=== PATIENT | male | born 1940 | race Caucasian/White ===

== ENCOUNTER 2018-08-24 17:38 | Inpatient (IN) | payer BC, OTHER ==
--- NOTE | 2018-08-24 17:44 | PDOC ---
Rapid Medical Evaluation Chief Complaint: Lightheaded Medical Evaluation: Allergies Allergy/AdvReac Type Severity Reaction Status Date / Time No Known Allergies Allergy Verified 01/15/16 18:12 08/24/18 17:40 I have performed a brief in-person evaluation of this patient. The patient presents with a chief complaint of: states passed piece of kidney stones, freq problems with same. +dizziness and equalibrium changes.;felt chills and feverish Pertinent physical exam findings: Weak, AOx3, I have ordered the following: UA/ CMP/ CMP The patient will proceed to the ED for further evaluation. 08/24/18 17:42 Discharge Disposition - Diagnosis Dizziness - Referrals - Patient Instructions - Post Discharge Activity
[2018-08-24 17:54] VITALS: BMI 23.6
--- NOTE | 2018-08-24 18:02 | PDOC ---
History of Present Illness - General Chief Complaint: Lightheaded Stated Complaint: FALL, LOSS OF EQULIBRIUM Time Seen by Provider: 08/24/18 18:01 - History of Present Illness Initial Comments: 08/24/18 19:10 The patient is a 77 year old male with a history of HTN, HLD, Kidney Stones, [place] who presents for evaluation of frequent falls. The patient reports that he passed a kidney stone 2 days ago and over the past 1 day he has been experiencing frequent falls. He states that he feels "unsteady on his feet." He states that he does not feel lightheaded or dizziness but states that he feels his balance is off. He notes that he fell today and was unable to get up due to feeling unsteady prompting his presentation to the ED for further evaluation. He otherwise denies headache, fevers, chills, SOB, chest pain, nausea, vomiting, abdominal pain, or changes with urination or bowel movements. Past History - Past Medical History Allergies/Adverse Reactions: Allergies Allergy/AdvReac Type Severity Reaction Status Date / Time No Known Allergies Allergy Verified 08/24/18 17:43 Home Medications: Ambulatory Orders Aspirin [ASA -] 81 mg PO DAILY 01/15/16 Atorvastatin Ca [Lipitor] 40 mg PO DAILY 01/15/16 Clopidogrel Bisulfate [Plavix -] 75 mg PO DAILY 01/15/16 Metoprolol Succinate [Toprol Xl -] 25 mg PO DAILY 01/15/16 Pantoprazole Sodium [Protonix -] 40 mg PO DAILY 01/15/16 Ramipril 2.5 mg PO DAILY 01/15/16 Anemia: No Asthma: No Cancer: No Cardiac Disorders: Yes ([place] 2005 -stent) CVA: No COPD: No CHF: No Dementia: No Diabetes: No GI Disorders: No Disorders: Yes (kidney stones) HTN: Yes Hypercholesterolemia: Yes Liver Disease: No Seizures: No Thyroid Disease: No - Surgical History Abdominal Surgery: No Appendectomy: No Cardiac Surgery: Yes (stent placement) Cholecystectomy: No Lung Surgery: No Neurologic Surgery: No Orthopedic Surgery: No - Suicide/Smoking/Psychosocial Hx Smoking History: Never smoked Have you smoked in the past 12 months: No If you are a former smoker, when did you quit?: 10 yrs ago Hx Alcohol Use: No Drug/Substance Use Hx: No Substance Use Type: None Hx Substance Use Treatment: No Review of Systems - Review of Systems Comments:: 08/24/18 19:15 Constitutional: No fevers, chills, fatigue, malaise HEENT: No Rhinorrhea, nasal congestion, visual changes Cardiovascular: No chest pain, syncope, palpitations, lightheadedness Respiratory: No Cough, SOB, Hemoptysis, Gastrointestinal: No Abdominal pain, Nausea, Vomiting, Constipation, Diarrhea, Melena Genitourinary: No Dysuria, Frequency, Urgency, Hesitancy, Hematuria, Flank pain Musculoskeletal: No Myalgia, arthralgia Skin: No rashes, itching, bruising, pallor Neurologic: Gait instability. No Headache, Dizziness, Numbness, Weakness, or Tingling Psychiatric: No Hallucinations. No SI or HI *Physical Exam - Vital Signs Last Vital Signs Temp Pulse Resp BP Pulse Ox 98.7 F 75 19 134/64 96 08/24/18 17:41 08/24/18 17:41 08/24/18 17:41 08/24/18 17:41 08/24/18 17:41 - Physical Exam Comments: 08/24/18 19:16 General Appearance: Nourished. No Apparent Distress HEENT: EOMI, LYNDA. Normal TMs bilaterally. No Pharyngeal Erythema, Tonsillar Exudate, Tonsillar Erythema Neck: No Cervical Lymphadenopathy Respiratory/Chest: Lungs Clear, Normal Breath Sounds. No Crackles, Rales, Rhonchi, Wheezing Cardiovascular: Regular Rhythm, Regular Rate. No Murmur, Gallops, Rubs Gastrointestinal/Abdominal: Normal Bowel Sounds, Soft. No Guarding, Rebound, Tenderness Musculoskeletal: No CVA Tenderness Extremity: Normal Capillary Refill Integumentary: Normal Color, Dry, Warm Neurologic: coater operator II-XII NML intact, Fully Oriented, Alert, Normal Mood/Affect, Normal Response, Motor Strength 5/5. Normal Finger to Nose and Heel to Huff. Unsteady gait noted on exam. Negative roomburgs. ED Treatment Course - LABORATORY CBC & Chemistry Diagram: 08/24/18 19:24 08/24/18 19:24 Medical Decision Making - Medical Decision Making 08/24/18 19:17 The patient is a 77 year old male with a history of HTN, HLD, Kidney Stones, [place] who presents for evaluation of frequent falls. Differential includes but is not limited to: Syncope, CVA, TIA, Infectious, Metabolic Derangement. Given the patient's history and physical exam, we will obtain a cbc, cmp, troponin, ua , urine cultures, head CT, chest plain film, cervical CT to evaluate further. We will continue to monitor and reassess while here in the ED. 08/24/18 23:40 CBC, cmp, troponin, are unremarkable. Head CT and Cervical spine CT did not demonstrate any acute pathology as read by our fiberglass bonding machine tender radiologist. Chest plain film was unremarkable. Given the patient's history and physical exam, we are concerned for a neurological process as the source of the patient's ataxia. He will require admission for further monitoring and management. We discussed the case with the admitting team who accepted the patient for admission. *DC/Admit/Observation/Transfer Diagnosis at time of Disposition: Dizziness, Ataxic gait - Discharge Dispostion Condition at time of disposition: Stable Decision to Admit order: Yes - Referrals - Patient Instructions - Post Discharge Activity
--- NOTE | 2018-08-24 19:12 | PDOC ---
Documentation entered by Abisai Todd SCRIBE, acting as scribe for Lisseth Nascimento DO. Lisseth Nascimento DO: This documentation has been prepared by the Perez kyle Joel, SCRIBE, under my direction and personally reviewed by me in its entirety. I confirm that the documentation accurately reflects all work, treatment, procedures, and medical decision making performed by me. Attending Attestation - Resident Resident Name: John River - ED Attending Attestation I have performed the following: I have examined & evaluated the patient, The case was reviewed & discussed with the resident, I agree w/resident's findings & plan, Exceptions are as noted - HPI HPI: 08/24/18 19:13 The patient is a 77 year old male, with a significant PMH of [place] (s/p stent, 2005 ), CAD (on Plavix), HTN, hyperlipidemia, and kidney stones who presents to the emergency department for evaluation of disequilibrium and 2 falls within the past 2 days. The patient states he fell last night while trying to get into bed and into the tub this morning while urinating. He states he was unable to stand today after falling as he felt he lost his equilibrium. He denies hitting his head or LOC. He also endorses chills. The patient also reports 1 episode of hematuria this past Tuesday with an associated jagged, sharp pain sensation. He states his episode of hematuria and dysuria is consistent with his prior kidney stone passings. The patient denies chest pain, shortness of breath, headache and dizziness. Denies fever, nausea, vomit, diarrhea and constipation. Denies urinary frequency, urgency. Allergies: NKA Past surgical history: Cardiac stent placement. Social history: Former smoker. No reported alcohol or drug use. PCP: Dr. Nelson ([facility]) - Physicial Exam PE: 08/24/18 19:13 GENERAL: Awake, alert, and fully oriented, in no acute distress HEAD: No signs of trauma EYES: PERRLA, EOMI, sclera anicteric, conjunctiva clear ENT: Auricles normal inspection, hearing grossly normal, nares patent, oropharynx clear without exudates. Moist mucosa NECK: Normal ROM, supple, no lymphadenopathy, JVD, or masses LUNGS: Breath sounds equal, clear to auscultation bilaterally. No wheezes, and no crackles HEART: Regular rate and rhythm, normal S1 and S2, no murmurs, rubs or gallops ABDOMEN: Soft, nontender, normoactive bowel sounds. No guarding, no rebound. No masses BACK: No CVA tenderness. No C-spine tenderness. No rib tenderness. EXTREMITIES: Normal range of motion, no edema. No clubbing or cyanosis. No cords, erythema, or tenderness NEUROLOGICAL: Cranial nerves II through XII grossly intact. Normal speech. SKIN: Warm, Dry, normal turgor, no rashes or lesions noted. - Medical Decision Making 08/24/18 19:03 I, Dr. Lisseth Nascimento, DO, attest that this document has been prepared under my direction and personally reviewed by me in its entirety. I further attest, that it accurately reflects all work, treatment, procedures and medical decision -making performed by me. 08/24/18 19:05 a/p: 77yo male with hx of htn, cad on asa/plavix with recently passed kidney stone on tuesday with freq falls and feeling off balance since -pt denies head injury of loc -pt denies cp/sob -denies ear pain or tinnitus, no rhinorrhea or sore throat -no abd pain -no dysuria -c/o chills, but no fevers -no hematuria today -will send labs, head ct, ekg, trop, cxr, ct c spine -will need obs for mri head -will monitor and reassess -had normal finger to nose and heel/cyr, but off balance when he stands 08/24/18 20:[address] without acute findings cxr clear labs [facility] for further eval of ataxic gait and freq falls and poss neuro eval pt now walks with a walker- which is new x 2 days 08/24/18 21:16 resident discussed the case with leydi who accepts pt to service
[2018-08-24 19:42] LABS: BASO % 1.1 % (0-2.0); HEMATOCRIT 43.1 % (35.4-49); HEMOGLOBIN 14.5 GM/dL (11.7-16.9); LYMPH % 7.2 % (8-40); MCH 28.6 pg (25.7-33.7); MCHC 33.8 g/dl (32.0-35.9); MEAN CELL VOLUME 84.7 fl (80-96); MEAN PLT VOLUME 8.8 fl (7.5-11.1); MONO % 4.6 % (3.8-10.2); NEUT % 87.1 % (42.8-82.8); PLATELET COUNT 124 K/MM3 (134-434); RBC 5.09 M/mm3 (4.00-5.60); RDW 14.2 % (11.9-15.9); WHITE BLOOD COUNT 7.4 K/mm3 (4.0-10.0)
[2018-08-24 19:52] LABS: INR 1.23 (0.83-1.09); PROTHROMBIN TIME (PATIENT) 14.5 SEC (9.7-13.0)
[2018-08-24 20:40] LABS: ALBUMIN 3.6 g/dl (3.4-5.0); BILIRUBIN,TOTAL 1.3 mg/dL (0.2-1); BLOOD UREA NITROGEN 19.1 mg/dL (7-18); CALCIUM 8.6 mg/dL (8.5-10.1); CREATININE 1.2 mg/dL (0.55-1.3); POTASSIUM 3.8 mmol/L (3.5-5.1); TOT PROT 6.5 g/dl (6.4-8.2)
--- NOTE | 2018-08-24 21:18 | PN ---
Teaching Attending Note Name of Resident: Brenda Marin ATTENDING PHYSICIAN STATEMENT I saw and evaluated the patient. I reviewed the resident's note and discussed the case with the resident. I agree with the resident's findings and plan as documented. SUBJECTIVE: Patient is a 77 year old man with a PMH of [place] (s/p stent, 2005), CAD(on Plavix) , HTN, Hyperlipidemia and Kidney stones who presents to the ER for evaluation of disequilibrium and 2 falls within the past 2 days. The patient states he fell last night while trying to get into bed and into the tub this morning while urinating. He states he was unable to stand today after falling as he felt he lost his equilibrium. He denies hitting his head or LOC. He also endorses chills. The patient also reports 1 episode of hematuria this past Tuesday with an associated jagged, sharp pain sensation. He states his episode of hematuria and dysuria is consistent with his prior kidney stone passings. The patient denies chest pain, shortness of breath, headache and dizziness. Denies fever, nausea, vomit, diarrhea and constipation. Denies urinary frequency , urgency. OBJECTIVE: Alert and not orthostatic Vital Signs Period Temp Pulse Resp BP Sys/Ramires Pulse Ox Last 24 Hr 98.7 F 75 19 134/64 96 HEENT: No Jaundice, eye redness or discharge, PERRLA, EOMI. Normocephalic, atraumatic. External ears are normal and hearing is grossly intact. No nasal discharge. Neck: Supple, nontender. No palpable adenopathy or thyromegaly. No JVD Chest: Good effort. Clear to auscultation and percussion. Heart: Regular. No S3, rub or murmur Abdomen: Not distended, soft, nontender and no HSM. No rebound or guarding. Normal bowel sounds. Ext: Peripheral pulses intact. No leg edema. Skin: Warm and dry. No petechiae, rash or ecchymosis. Neuro: Alert. Oriented x3. CN 2-12 grossly intact. Sensation grossly intact in all four extremities and DTR are symmetric. Gait cannot be tested for safety reasons. Psych: Appropriate mood and affect. Good insight. Home Medications Medication Instructions Recorded Aspirin [ASA -] 81 mg PO DAILY 01/15/16 Atorvastatin Ca [Lipitor] 40 mg PO DAILY 12/08/16 Clopidogrel Bisulfate [Plavix -] 75 mg PO DAILY 01/15/16 Metoprolol Succinate [Toprol Xl -] 25 mg PO DAILY 01/15/16 Pantoprazole Sodium [Protonix -] 40 mg PO DAILY 01/15/16 Ramipril 2.5 mg PO DAILY 01/15/16 Abnormal Lab Results 08/24/18 08/24/18 08/24/18 19:24 19:24 19:24 Plt Count 124 L Neutrophils % 87.1 H Lymphocytes % 7.2 L PT with INR 14.50 H INR 1.23 H Anion Gap 7 L BUN 19.1 H Total Bilirubin 1.3 H AST 40 H ASSESSMENT AND PLAN: 1. Frequent falls - Cause unclear. CXR and noncontrast head CT scan did not show any acute abnormality and no fracture noted on C-spine CT. Urinalysis is pending. Will get brain MRI to rule out CVA, ECHO, urine toxicology, monitor on telemetry, consult PT and Neurology. Implement fall precautions. 2. Hypertension - Restart suitable outpatient antihypertensive drugs when clinically appropriate. Revise regimen to ensure good BP control. Nonpharmacologic measures to control hypertension like weight loss, salt restriction and exercise discussed. 3. DVT prophylaxis - Lovenox 40 mg SQ q 24 hours. 4. Advance directives - Full code
[2018-08-25] MEDS ORDERED: ACETAMINOPHEN 325 MG TABLET (FP) PO PRN (02:20)
[2018-08-25 02:24] VITALS: TEMP 98.9
[2018-08-25] MEDS ORDERED: ACETAMINOPHEN 325 MG TABLET (FP) ONE (02:35)
--- NOTE | 2018-08-25 03:08 | HP ---
CHIEF COMPLAINT: weakness, ataxia PCP: HISTORY OF PRESENT ILLNESS: 77M with pmh of HLD, chronic kidney stones(calcium stones, 18 urologic procedures), [place](2005, stent x1) presents to [facility] with complaint of weakness and unstable gait x3d. 3d prior, passed a stone and subsequently developed chills, lower extremity weakness. Fell on 08/24/18 and could not get himself up, had to crawl. Prior to fall, denies ODELL/dizziness/F/C/CP/SOB/CP/palpitations. Normal PO intake. Denies sick contacts. H/o mechanical fall on ice years prior. No h/o syncopal episodes. Had echocardiogram and carotid doppler study ~1ys prior, does not recall results. Lives with at home. Ambulates w/o difficulty baseline. Acheives ALDs independently. ER course was notable for: (1) CT H neg (2) CT c-spine neg Recent Travel: PAST MEDICAL HISTORY: HLD, chronic kidney stones(calcium stones, 18 urologic procedures), [place](2005, stent x1) PAST SURGICAL HISTORY: Social History: Smoking: last tobacco was 13ys prior, near-daily MJ Alcohol: denies Drugs: MJ Family History: Allergies No Known Allergies Allergy (Verified 08/24/18 17:43) HOME MEDICATIONS: Home Medications Medication Instructions Recorded Aspirin [ASA -] 81 mg PO DAILY 01/15/16 Atorvastatin Ca [Lipitor] 40 mg PO DAILY 01/15/16 Clopidogrel Bisulfate [Plavix -] 75 mg PO DAILY 01/15/16 Metoprolol Succinate [Toprol Xl -] 25 mg PO DAILY 01/15/16 Pantoprazole Sodium [Protonix -] 40 mg PO DAILY 01/15/16 Ramipril 2.5 mg PO DAILY 01/15/16 REVIEW OF SYSTEMS CONSTITUTIONAL: Absent: fever, chills, diaphoresis, generalized weakness, malaise, loss of appetite, weight change HEENT: Absent: rhinorrhea, nasal congestion, throat pain, throat swelling, difficulty swallowing, mouth swelling, ear pain, eye pain, visual changes CARDIOVASCULAR: Absent: chest pain, syncope, palpitations, irregular heart rate, lightheadedness , peripheral edema RESPIRATORY: Absent: cough, shortness of breath, dyspnea with exertion, wheezing, stridor, hemoptysis GASTROINTESTINAL: Absent: abdominal pain, abdominal distension, nausea, vomiting, diarrhea, constipation, melena, hematochezia GENITOURINARY: Absent: dysuria, frequency, urgency, hesitancy, hematuria, flank pain, genital pain MUSCULOSKELETAL: Absent: myalgia, arthralgia, joint swelling, back pain, neck pain SKIN: Absent: rash, itching, pallor HEMATOLOGIC/IMMUNOLOGIC: Absent: easy bleeding, easy bruising, lymphadenopathy, frequent infections ENDOCRINE: Absent: unexplained weight gain, unexplained weight loss NEUROLOGIC: lower extremity weakness, unsteady gait Absent: headache, focal weakness or paresthesias, dizziness, seizure, mental status changes, bladder or bowel incontinence PHYSICAL EXAMINATION Vital Signs - 24 hr 08/24/18 08/25/18 17:41 02:15 Temperature 98.7 F 98.9 F Pulse Rate 75 Pulse Rate [ 73 Right Radial] Respiratory 19 16 Rate Blood Pressure 134/64 Blood Pressure 122/59 L [Right Arm] O2 Sat by Pulse 96 98 Oximetry (%) GENERAL: Awake, alert, and fully oriented, in no acute distress. HEAD: Normal with no signs of trauma. No temporal wasting EYES: extraocular movements intact, sclera anicteric, conjunctiva clear. EARS, NOSE, THROAT: Ears normal, nares patent, oropharynx clear without exudates. Moist mucous membranes. NECK: Normal range of motion, supple without lymphadenopathy, JVD, or masses. LUNGS: Breath sounds equal, clear to auscultation bilaterally. No wheezes, and no crackles. No accessory muscle use. HEART: Regular rate and rhythm, normal S1 and S2 without murmur, rub or gallop. ABDOMEN: Soft, nontender, not distended, no guarding, no rebound, no masses. MUSCULOSKELETAL: Normal range of motion at all joints. No bony deformities or tenderness. No CVA tenderness. UPPER EXTREMITIES: 2+ pulses, warm, well-perfused. No cyanosis. No clubbing. No peripheral edema. LOWER EXTREMITIES: 2+ pulses, warm, well-perfused. No calf tenderness. No peripheral edema. NEUROLOGICAL: Cranial nerves II-XII intact. Normal speech. Normal gait. NIHSS ~ 0 PSYCHIATRIC: Cooperative. Good eye contact. Appropriate mood and affect. SKIN: Warm, dry, normal turgor, no rashes or lesions noted, normal capillary refill. Laboratory Results - last 24 hr 08/24/18 08/24/18 08/24/18 19:24 19:24 19:24 WBC RBC Hgb Hct MCV MCH MCHC RDW Plt Count MPV Absolute Neuts (auto) Neutrophils % Lymphocytes % Monocytes % Eosinophils % Basophils % Nucleated RBC % PT with INR INR PTT (Actin FS) 32.3 Sodium 137 Potassium 3.8 Chloride 102 Carbon Dioxide 27 Anion Gap 7 L BUN 19.1 H Creatinine 1.2 Est GFR (CKD-EPI)AfAm 67.20 Est GFR (CKD-EPI)NonAf 57.98 Random Glucose 101 Calcium 8.6 Total Bilirubin 1.3 H AST 40 H ALT 48 Alkaline Phosphatase 66 Creatine Kinase 74 Troponin I < 0.02 Total Protein 6.5 Albumin 3.6 08/24/18 08/24/18 19:24 19:24 WBC 7.4 RBC 5.09 Hgb 14.5 Hct 43.1 MCV 84.7 MCH 28.6 MCHC 33.8 RDW 14.2 Plt Count 124 L MPV 8.8 Absolute Neuts (auto) 6.5 Neutrophils % 87.1 H Lymphocytes % 7.2 L Monocytes % 4.6 Eosinophils % 0.0 Basophils % 1.1 Nucleated RBC % 0 PT with INR 14.50 H INR 1.23 H PTT (Actin FS) Sodium Potassium Chloride Carbon Dioxide Anion Gap BUN Creatinine Est GFR (CKD-EPI)AfAm Est GFR (CKD-EPI)NonAf Random Glucose Calcium Total Bilirubin AST ALT Alkaline Phosphatase Creatine Kinase Troponin I Total Protein Albumin ASSESSMENT/PLAN: 77M with pmh of HLD, chronic kidney stones(calcium stones, 18 urologic procedures), [place](2005, stent x1) presenting w/ complaint of weakness and unsteady gait. # weakness -- resolving # unsteady gait -- resolving > BS 101 > CT H(08/24/18): neg > CT c-spine(08/24/18): neg - NIHSS ~0 - consider Neuro consult - fu MRI brain - fu urine tox - fu UA # h/o MS > EKG(08/24/18): NSR, infarct of indeterminate age - restart home meds in AM [facility], DO PGY-1 Medicine, PM-Float [id number] 08/25/18 Visit type - Emergency Visit Emergency Visit: Yes ED Registration Date: 08/24/18 Care time: The patient presented to the Emergency Department on the above date and was hospitalized for further evaluation of their emergent condition. - New Patient This patient is new to me today: Yes Date on this admission: 08/25/18 - Critical Care Critical Care patient: No ATTENDING PHYSICIAN STATEMENT I saw and evaluated the patient. I reviewed the resident's note and discussed the case with the resident. I agree with the resident's findings and plan as documented. SUBJECTIVE: OBJECTIVE: ASSESSMENT AND PLAN:
[2018-08-25 08:11] LABS: HEMATOCRIT 41.7 % (35.4-49); HEMOGLOBIN 14.2 GM/dL (11.7-16.9); MCH 28.9 pg (25.7-33.7); MCHC 34.1 g/dl (32.0-35.9); MEAN CELL VOLUME 84.8 fl (80-96); PLATELET COUNT 96 K/MM3 (134-434); RBC 4.92 M/mm3 (4.00-5.60); RDW 13.8 % (11.9-15.9); WHITE BLOOD COUNT 5.4 K/mm3 (4.0-10.0)
[2018-08-25 08:18] LABS: BLOOD UREA NITROGEN 21.7 mg/dL (7-18); CALCIUM 8.6 mg/dL (8.5-10.1); CREATININE 1.1 mg/dL (0.55-1.3); MAGNESIUM 2.1 mg/dL (1.8-2.4); PHOSPHOROUS 2.9 mg/dL (2.5-4.9); POTASSIUM 3.3 mmol/L (3.5-5.1)
[2018-08-25 08:23] VITALS: BP 125/71; PULSE 67
[2018-08-25] MEDS ORDERED: POTASSIUM CHLORIDE TABS 20 MEQ TABLET.ER (FP) PO ONE ×2 (08:44→09:12)
[2018-08-25] MEDS ORDERED: KCL 10 MEQ IVPB 10 MEQ/100 ML INFUS.BAG IVPB SCH (08:45)
[2018-08-25 09:05] LABS: BILIRUBIN,DIRECT 0.3 mg/dL (0.0-0.2)
[2018-08-25] MEDS ORDERED: KCL 10 MEQ IVPB 10 MEQ/100 ML INFUS.BAG IVPB ONE (09:37)
--- NOTE | 2018-08-25 10:22 | CON.NEURO ---
Consult Consult Specialty:: Pita Referred by:: ER Reason for Consultation:: weakness - History of Present Illness History of Present Illness: [id number] right-handed man with present medical history significant for HLD, chronic kidney stones(calcium stones, 18 urologic procedures), [place](2006, stent x1) Presents to the hospital with a chief complaint of difficulty with balance and equilibrium. I so the patient in the emergency room patient was very agitated did not want to be examined patient wants to go to the home. Patient claims that this happened because he passed the stone. - History Source History Provided By: Patient Limitations to Obtaining History: No Limitations - Alcohol/Substance Use Hx Alcohol Use: No - Smoking History Smoking history: Never smoked Have you smoked in the past 12 months: No If you are a former smoker, when did you quit?: 10 yrs ago Home Medications - Allergies Allergies/Adverse Reactions: Allergies Allergy/AdvReac Type Severity Reaction Status Date / Time No Known Allergies Allergy Verified 08/24/18 17:43 - Home Medications Home Medications: Ambulatory Orders Aspirin [ASA -] 81 mg PO DAILY 01/15/16 Atorvastatin Ca [Lipitor] 40 mg PO DAILY 01/15/16 Clopidogrel Bisulfate [Plavix -] 75 mg PO DAILY 01/15/16 Metoprolol Succinate [Toprol Xl -] 25 mg PO DAILY 01/15/16 Pantoprazole Sodium [Protonix -] 40 mg PO DAILY 01/15/16 Ramipril 2.5 mg PO DAILY 01/15/16 Family Disease History - Family Disease History Family History: Unable to Obtain Review of Systems - Review of Systems Neurological: reports: Incoordination, Numbness, Parasthesia Physical Exam-Neuro Vital Signs: Vital Signs Temperature 98.9 F 08/25/18 02:15 Pulse Rate 67 08/25/18 08:22 Respiratory Rate 20 08/25/18 08:22 Blood Pressure 125/71 08/25/18 08:22 O2 Sat by Pulse Oximetry (%) 97 08/25/18 08:22 Constitutional: Yes: Well Nourished Neck: Yes: WNL Cardiovascular: Yes: WNL Labs: CBC, BMP 08/25/18 06:52 08/25/18 06:52 INR, PTT INR 1.23 (0.83-1.09) H 08/24/18 19:24 - Neuro Exam Level Of Consciousness: Yes: Oriented to Person, Oriented to Place, Oriented to Time Eyes: Yes: PERRLA Speech: WNL Dominant Hand: Right Cranial Nerves II-XII Intact: Yes Gag: Present DTR's: 1+ Left Bicep, 1+ Right Bicep, 1+ Left Tricep, 1+ Right Tricep Response to light touch: Normal Response to pain prick: Normal Response to temperature: Normal Response to vibration: Normal Motor Strength: 4/5: Left Arm, Right Arm, Left Leg, Right Leg Imaging - Results Cat Scan: Image Reviewed Problem List - Problems (1) Ataxic gait Assessment/Plan: patient refused to stay in the hospital Patient needs an MRI of the brain with no contrast Patient needs a CAT scan of the lumbosacral spine with no contrast Fall precautions Lidoderm patches on the lower back Code(s): R26.0 - ATAXIC GAIT
--- NOTE | 2018-08-25 12:50 | EKG ---
Test Reason : Blood Pressure : / mmHG Vent. Rate : 070 BPM Atrial Rate : 070 BPM P-R Int : 142 ms QRS Dur : 096 ms QT Int : 372 ms P-R-T Axes : 009 -29 068 degrees QTc Int : 401 ms NORMAL SINUS RHYTHM POSSIBLE INFERIOR INFARCT , AGE UNDETERMINED NONSPECIFIC ST ABNORMALITY ABNORMAL ECG Confirmed by CLARIBEL BELTRÁN MD ([id number]) on 08/25/2018 12:50:16 PM Referred By: Confirmed By:CLARIBEL BELTRÁN MD
--- NOTE | 2018-08-25 19:02 | DS ---
Physical Exam: SUBJECTIVE: Patient seen and examined at bedside. pt states that he has been getting kidney stones for many years. 3 days ago he passed a kidney stone and this event was traumatic for the pt making him weak. this weakness caused the patient to fall. the pt is aggravated and wants to leave the hospital ama. OBJECTIVE: Vital Signs Period Temp Pulse Resp BP Sys/Ramires Pulse Ox Last 24 Hr 98.9 F 67-73 16-20 122-125/59-71 97-98 PHYSICAL EXAM GENERAL: The patient is awake, alert, and fully oriented, in no acute distress. LUNGS: Breath sounds equal, clear to auscultation bilaterally, no wheezes, no crackles, no accessory muscle use. HEART: Regular rate and rhythm, S1, S2 without murmur, rub or gallop. ABDOMEN: Soft, nontender, nondistended, normoactive bowel sounds EXTREMITIES: 2+ pulses, warm, well-perfused, no edema. SKIN: Warm, dry, normal turgor, no rashes or lesions noted. LABS Laboratory Results - last 24 hr 08/24/18 08/24/18 08/24/18 19:24 19:24 19:24 WBC RBC Hgb Hct MCV MCH MCHC RDW Plt Count MPV Absolute Neuts (auto) Neutrophils % Lymphocytes % Monocytes % Eosinophils % Basophils % Nucleated RBC % PT with INR INR PTT (Actin FS) 32.3 Sodium 137 Potassium 3.8 Chloride 102 Carbon Dioxide 27 Anion Gap 7 L BUN 19.1 H Creatinine 1.2 Est GFR (CKD-EPI)AfAm 67.20 Est GFR (CKD-EPI)NonAf 57.98 Random Glucose 101 Calcium 8.6 Phosphorus Magnesium Total Bilirubin 1.3 H Direct Bilirubin AST 40 H ALT 48 Alkaline Phosphatase 66 Creatine Kinase 74 Troponin I < 0.02 Total Protein 6.5 Albumin 3.6 Blood Type Antibody Screen 08/24/18 08/24/18 08/25/18 19:24 19:24 02:10 WBC 7.4 RBC 5.09 Hgb 14.5 Hct 43.1 MCV 84.7 MCH 28.6 MCHC 33.8 RDW 14.2 Plt Count 124 L MPV 8.8 Absolute Neuts (auto) 6.5 Neutrophils % 87.1 H Lymphocytes % 7.2 L Monocytes % 4.6 Eosinophils % 0.0 Basophils % 1.1 Nucleated RBC % 0 PT with INR 14.50 H INR 1.23 H PTT (Actin FS) Sodium Potassium Chloride Carbon Dioxide Anion Gap BUN Creatinine Est GFR (CKD-EPI)AfAm Est GFR (CKD-EPI)NonAf Random Glucose Calcium Phosphorus Magnesium Total Bilirubin Direct Bilirubin AST ALT Alkaline Phosphatase Creatine Kinase Troponin I Total Protein Albumin Blood Type O NEGATIVE Antibody Screen Negative 08/25/18 08/25/18 06:52 06:52 WBC 5.4 RBC 4.92 Hgb 14.2 Hct 41.7 MCV 84.8 MCH 28.9 MCHC 34.1 RDW 13.8 Plt Count 96 L D MPV 9.0 Absolute Neuts (auto) Neutrophils % Lymphocytes % Monocytes % Eosinophils % Basophils % Nucleated RBC % PT with INR INR PTT (Actin FS) Sodium 138 Potassium 3.3 L Chloride 104 Carbon Dioxide 27 Anion Gap 7 L BUN 21.7 H Creatinine 1.1 Est GFR (CKD-EPI)AfAm 74.65 Est GFR (CKD-EPI)NonAf 64.41 Random Glucose 128 H Calcium 8.6 Phosphorus 2.9 Magnesium 2.1 Total Bilirubin 1.0 Direct Bilirubin 0.3 H AST ALT Alkaline Phosphatase Creatine Kinase Troponin I Total Protein Albumin Blood Type Antibody Screen Head CT: No CT evidence of acute intracranial pathology. The intracranial structures demonstrate no definite interval change in comparison to a prior CT exam of 2010. CT Cspine: no acute fracture CXR: No evidence of active pulmonary disease. HOSPITAL COURSE: Date of Admission:08/24/18 77 yo M w/ PMH of HLD, chronic nephrolithiasis ( Ca Stones, s/p >18 urologic procedures), IA s/p stent placement, p/w weakness and unsteadiness. pt states the weakness and unsteadiness is due to the "traumatic experience of passing a kidney stone". While in the ED pt had a CT of the head which resulted with no acute intracranial pathology. EKG was in NSR. Pt was admitted to continue workup for fall. troponin negative x1. pt left hospital against medical advice and the we were unable to conclude out workup or medically optimize the patient. Date of Discharge: 08/25/18 Minutes to complete discharge: 36 Discharge Summary Reason For Visit: ATAXIC GAIT,DIZZINESS Current Active Problems Ataxic gait (Acute) Dizziness (Acute) Condition: Stable - Instructions Disposition: AGAINST MEDICAL ADVICE - Home Medications Comprehensive Discharge Medication List: Ambulatory Orders Aspirin [ASA -] 81 mg PO DAILY 01/15/16 Atorvastatin Ca [Lipitor] 40 mg PO DAILY 01/15/16 Clopidogrel Bisulfate [Plavix -] 75 mg PO DAILY 01/15/16 Metoprolol Succinate [Toprol Xl -] 25 mg PO DAILY 01/15/16 Pantoprazole Sodium [Protonix -] 40 mg PO DAILY 01/15/16 Ramipril 2.5 mg PO DAILY 01/15/16 This patient is new to me today: Yes Date on this admission: 08/26/18 Emergency Visit: Yes ED Registration Date: 08/24/18 Care time: The patient presented to the Emergency Department on the above date and was hospitalized for further evaluation of their emergent condition. Critical Care patient: No - Discharge Referral Referred to [facility] No ATTENDING PHYSICIAN STATEMENT I saw and evaluated the patient. I reviewed the resident's note and discussed the case with the resident. I agree with the resident's findings and plan as documented. SUBJECTIVE: OBJECTIVE: ASSESSMENT AND PLAN:
--- NOTE | 2018-08-25 20:20 | PN ---
Teaching Attending Note Name of Resident: Ashely Acevedo ATTENDING PHYSICIAN STATEMENT I saw and evaluated the patient. I reviewed the resident's note and discussed the case with the resident. I agree with the resident's findings and plan as documented. SUBJECTIVE: No further dizziness. Wants to leave without further investigations recommended by Neurology. No fever/ODELL/limb numbness/weakness/tingling. OBJECTIVE: Afebrile, Hemodynamically Stable. Last Vital Signs Temp Pulse Resp BP Pulse Ox 98.9 F 67 20 125/71 97 08/25/18 02:15 08/25/18 08:22 08/25/18 08:22 08/25/18 08:22 08/25/18 08:22 HEENT - Atraumatic, Nromocephalic. LYNDA. EOMI Heart - S1, S2, RRR Lungs - clear to auscultation Abdomen - Soft, non-tender. Bowel Sounds normal. Extremities - no edema, no calf tenderness Neuro - AAO x 3. Tone/Power normal. Laboratory Results - last 24 hr 08/24/18 08/25/18 08/25/18 19:24 02:10 06:52 WBC 5.4 RBC 4.92 Hgb 14.2 Hct 41.7 MCV 84.8 MCH 28.9 MCHC 34.1 RDW 13.8 Plt Count 96 L D MPV 9.0 Sodium 137 Potassium 3.8 Chloride 102 Carbon Dioxide 27 Anion Gap 7 L BUN 19.1 H Creatinine 1.2 Est GFR (CKD-EPI)AfAm 67.20 Est GFR (CKD-EPI)NonAf 57.98 Random Glucose 101 Calcium 8.6 Phosphorus Magnesium Total Bilirubin 1.3 H Direct Bilirubin AST 40 H ALT 48 Alkaline Phosphatase 66 Total Protein 6.5 Albumin 3.6 Blood Type O NEGATIVE Antibody Screen Negative 08/25/18 06:52 WBC RBC Hgb Hct MCV MCH MCHC RDW Plt Count MPV Sodium 138 Potassium 3.3 L Chloride 104 Carbon Dioxide 27 Anion Gap 7 L BUN 21.7 H Creatinine 1.1 Est GFR (CKD-EPI)AfAm 74.65 Est GFR (CKD-EPI)NonAf 64.41 Random Glucose 128 H Calcium 8.6 Phosphorus 2.9 Magnesium 2.1 Total Bilirubin 1.0 Direct Bilirubin 0.3 H AST ALT Alkaline Phosphatase Total Protein Albumin Blood Type Antibody Screen Home Medications Medication Instructions Recorded Aspirin [ASA -] 81 mg PO DAILY 01/15/16 Atorvastatin Ca [Lipitor] 40 mg PO DAILY 01/15/16 Clopidogrel Bisulfate [Plavix -] 75 mg PO DAILY 01/15/16 Metoprolol Succinate [Toprol Xl -] 25 mg PO DAILY 01/15/16 Pantoprazole Sodium [Protonix -] 40 mg PO DAILY 01/15/16 Ramipril 2.5 mg PO DAILY 01/15/16 ASSESSMENT/PLAN: 77 year old male with history of CAD s/p AL s/p PCI/Stent, HLD, CKD 3, Nephrolithiasis s/p extensive urological interventions, presents with unsteady gait and dizziness. CT head was negative for acute intracranial pathology, as was CT C-Spine. He was seen by Neurology and recommended to have MRI Brain and CT LS Spine. The patient declines. He wants to leave AMA. He was explained all risks including possible Stroke, fall, HI, disability, and . He was adb= vised to follow with his PCP [facility] and to return to ED if symptoms were to return.
== END 2018-08-25 19:08 | disposition left against medical advice (07) | DRG 93 ==
LOC: JER 17:38 → JERBED 21:10
PROVIDERS: ADMIT Internal Medicine
DX: R26.0 Ataxic gait (principal); R42 Dizziness and giddiness; E78.5 Hyperlipidemia, unspecified; I25.2 Old myocardial infarction; R29.6 Repeated falls; I25.10 Atherosclerotic heart disease of native coronary artery without angina pectoris; I12.9 Hypertensive chronic kidney disease with stage 1 through stage 4 chronic kidney disease, or unspecified chronic kidney disease; N18.3 Chronic kidney disease, stage 3 (moderate); N20.0 Calculus of kidney; Z95.5 Presence of coronary angioplasty implant and graft; Z87.891 Personal history of nicotine dependence
CPT/HCPCS: 36415; 70450-TC; 71045-TC-FY; 72125-TC; 80048; 80053; 82247; 82248; 82550; 83735; 84100; 84484; 85025; 85027; 85610; 85730; 86850; 86900; 86901; 93005; 93010; 99284-25